=== PATIENT | male | born 1930 | race Caucasian/White ===

== ENCOUNTER 2021-01-15 13:56 | Emergency (ER) | payer MEDICARE, OTHER ==
--- NOTE | 2021-01-15 15:07 | ERPHSYRPT ---
- History of Present Illness Source: patient Exam Limitations: other (Poor historian) Patient Subjective Stated Complaint: PT HERE FOR LOWER BACK/TAILBONE PAIN. STATES HE IS HAVING TROUBLE URINATING . NO INJURY Triage Nursing Assessment: PT ALERT, RESP EASY, SKIN W/D/P, FACE MASK IN PLACE, ABD SOFT Physician History: 89 yo wm w inferior lumbar pain x 1 wk. Pain is 5/10 at rest but goes up to 9/10 w movement. Pt denies trauma/dysuria/hematuria/fever/incontinence of stool- urine. He saw an orthopedic surgeon last wk for the same problem. Pain is sharp wo radiation. Timing/Duration: other (1wk) Method of Injury: unknown Quality: sharp Back Pain Location: lumbar spine Severity of Pain-Max: severe Severity of Pain-Current: moderate Modifying Factors: Improves With: movement Associated Symptoms: lower back pain, No fever, No chills, No sweating, No urinary incontinence, No loss of bowel control, No constipation, No nausea, No vomiting, No problems urinating, No light-headedness, No dizziness, No numbness in legs/feet, No weakness, No sensory/motor loss, No tingling in legs/feet, No muscle spasms Previous symptoms: no prior history Allergies/Adverse Reactions: codeine Allergy (Verified 01/15/21 14:33) Home Medications: Apixaban [Eliquis] 1 ea BID 01/15/21 [History] Pregabalin 25 mg [Lyrica 25 MG] 25 mg PO BID 01/15/21 [History] Terazosin HCl 1 mg [Hytrin 1 mg] 1 mg DAILY 01/15/21 [History] Tramadol HCl 50 mg [Ultram 50 mg] 50 mg PO TID 01/15/21 [History] Ubidecarenone [Co Q-10] 1 ea DAILY 01/15/21 [History] Hx Influenza Vaccination/Date Given: Yes Hx Pneumococcal Vaccination/Date Given: Yes Immunizations Up to Date: Yes Travel Risk - International Travel Have you traveled outside of the country in past 3 weeks: No - Coronavirus Screening Are you exhibiting any of the following symptoms?: No Close contact with a COVID-19 positive Pt in past 14-21 Days: No - Vaccine Status Have you recieved a Covid-19 vaccination: Yes 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 - Review of Systems Constitutional: No Symptoms Eyes: No Symptoms Ears, Nose, & Throat: No Symptoms Respiratory: No Symptoms Cardiac: No Symptoms Abdominal/Gastrointestinal: No Symptoms, Appetite Changes Musculoskeletal: No Symptoms, Back Pain Skin: No Symptoms Neurological: No Symptoms Psychological: No Symptoms Endocrine: No Symptoms Hematologic/Lymphatic: No Symptoms Immunological/Allergic: No Symptoms - Past Medical History Pertinent Past Medical History: Yes Cardiac History: Coronary Artery Disease, Hypertension Endocrine Medical History: Diabetes Type II - Past Surgical History Past Surgical History: Yes Cardiac: CABG, Cardiac Catheterization - Social History Smoking Status: Never smoker Exposure to second hand smoke: No Drug Use: none Patient Lives Alone: Yes Significant Family History: no pertinent family hx - Nursing Vital Signs Nursing Vital Signs: Initial Vital Signs Pulse Rate 51 L 01/15/21 16:11 Blood Pressure 162/80 01/15/21 16:11 O2 Sat by Pulse Oximetry 97 01/15/21 16:11 Pain Scale Pain Intensity 5 Hypertensive - Physical Exam General Appearance: no apparent distress Eye Exam: PERRL/EOMI, eyes nml inspection Ears, Nose, Throat Exam: normal ENT inspection, TMs normal, pharynx normal, moist mucous membranes Neck Exam: normal inspection, non-tender, supple, full range of motion, No meningismus, No mass, No Brudzinski, No Kernig's Respiratory Exam: normal breath sounds, lungs clear, airway intact, No respiratory distress Cardiovascular Exam: regular rate/rhythm, normal heart sounds, normal peripheral pulses, murmur (2/6 EVON) Gastrointestinal Exam: soft, normal bowel sounds, No tenderness, No distention Back Exam: normal inspection, vertebral tenderness (Mod TTP mid-inferior L- spine) Extremity Exam: normal inspection, normal range of motion, pelvis stable Peripheral Pulses: carotid (R): 2+, carotid (L): 2+ Neurologic Exam: alert, oriented x 3, cooperative, 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 as tested, normal mood/affect, nml cerebellar function, sensation nml Skin Exam: normal color, warm, dry, No rash Lymphatic Exam: No adenopathy SpO2 Interpretation: normal SpO2: 97 O2 Delivery: Room Air - Course Nursing assessment & vital signs reviewed: Yes - CT Exams Abdomen/Pelvis CT Interpretation: Discussed w/radiologist (L sacral ala fx/Disrtended bladder/tiny gallstones/fecal stasis) Ordered Tests: Active Orders 24 hr Category Date Time Status ABDOMEN AND PELVIS W/0 CONTRAS [CT] Stat Exams 01/15/21 15:01 Completed CULTURE,URINE Stat Lab 01/15/21 17:53 Received UA W/RFX UR CULTURE Stat Lab 01/15/21 17:53 Completed Medication Summary Discontinued Medications Generic Name Dose Route Start Last Admin Trade Name Juan Luis PRN Reason Stop Dose Admin Ketorolac Tromethamine 15 mg 01/15/21 18:40 01/15/21 18:47 Toradol 30 Mg Injection IM 01/15/21 18:41 15 mg STAT ONE Administration Ketorolac Tromethamine Confirm 01/15/21 18:44 Toradol 30 Mg Injection Administered 01/15/21 18:45 Dose 30 mg .ROUTE .STK-MED ONE Lab/Rad Data: Laboratory Results 01/15/21 Range/Units 17:53 Urine Color STRAW (YELLOW) Urine Appearance CLEAR (CLEAR) Urine pH 6.0 (5-6) Ur Specific [place] 1.010 (1.005-1.025) Urine Protein 30 (Negative) Urine Ketones NEGATIVE (NEGATIVE) Urine Blood MODERATE (0-5) Arnold/ul Urine Nitrite NEGATIVE (NEGATIVE) Urine Bilirubin NEGATIVE (NEGATIVE) Urine Urobilinogen NEGATIVE (0-1) mg/dL Ur Leukocyte Esterase NEGATIVE (NEGATIVE) Urine WBC (Auto) 3-5 (0-5) /HPF Urine RBC (Auto) 11-15 (0-2) /HPF Urine Bacteria (Auto) RARE (NEGATIVE) /HPF Urine Culture Reflexed YES (NO) Urine Glucose NEGATIVE (NEGATIVE) mg/dL - Progress Progress: improved Progress Note: 01/15/21 18:41 IN/Out cath done per nursing/800ml drained 15mg IM Toradol Counseled pt/family regarding: diagnosis, need for follow-up, rad results - Departure Departure Disposition: Home Clinical Impression: Sacral fracture, closed, Urinary retention Condition: Stable Critical Care Time: No Referrals: KENNA KERR, [Primary Care Provider] - Instructions: Low Back Pain (DC) Additional Instructions: Rest/Heat/Massage Follow up with your family MD Pain meds as needed Weight bearing as tolerated Start Flomax for urinary retention Prescriptions: Hydrocodone/Acetaminophen [Hydrocodone-Acetamin 5-325 mg] 1 each PO Q6HPRN PRN #7 tablet MDD 4 tabs PRN Reason: Moderate To Severe Pain Hydrocodone/Acetaminophen [Hydrocodone-Acetamin 5-325 mg] [address] N #7 tablet MDD 4 tabs PRN Reason: Moderate To Severe Pain Tamsulosin HCl 0.4 mg [Flomax 0.4 MG] 0.4 mg PO DAILY #14 cap Tramadol HCl/Acetaminophen [Ultracet Tablet] 1 each PO Q4-6HPRN PRN #10 tablet MDD 4 tabs PRN Reason: Pain
--- NOTE | 2021-01-15 15:37 | XRAY ---
Indication: Low back pain 1 month. No known injury. Multiple contiguous axial images obtained through the abdomen and pelvis without contrast. Comparison: None Lung bases hyperinflated with minimal dependent atelectasis and tiny right lower lobe calcified granuloma. Heart is borderline enlarged. Small hiatal hernia. Noncontrasted stomach and bowel loops appear nonobstructed. Normal appendix. Mild diffuse scattered colonic fecal debris and colonic diverticulosis throughout. No free fluid/air. Markedly distended urinary bladder concerning for outlet obstruction versus neurogenic bladder. Enlarged prostate gland does impress on the base of the bladder. A few tiny gallstones/gravel. Remaining liver, gallbladder, pancreas, spleen, adrenal glands, kidneys, ureters, and bladder are unremarkable for noncontrast exam. Moderate scattered vascular calcifications. No AAA. Osseous structures intact with osteopenia and mild/moderate multilevel thoracolumbar degenerative spondylosis. Left sacral ala fracture of uncertain chronicity. Impression: 1. Left sacral ala fracture of uncertain chronicity. Elsewhere osteopenia and multilevel degenerative spondylosis. 2. Markedly distended urinary bladder. Rule out outlet objection versus neurogenic bladder. 3. Small hiatal hernia, tiny gallstones/gravel, mild diffuse fecal stasis, diffuse colonic diverticulosis, enlarged prostate gland, and moderate scattered arteriosclerotic arteriosclerotic disease.
[2021-01-15 18:25] LABS: Appearance CLEAR (CLEAR); Bilirubin NEGATIVE (NEGATIVE); Blood MODERATE Ery/ul (0-5); Glucose NEGATIVE (NEGATIVE); Ketones NEGATIVE (NEGATIVE); Leukocyte Esterase NEGATIVE (NEGATIVE); Nitrite NEGATIVE (NEGATIVE); Protein,Urine Dip 30 (Negative); Urobilinogen NEGATIVE mg/dL (0-1)
[2021-01-15 18:31] LABS: Bacteria RARE /HPF (NEGATIVE)
[2021-01-15] MEDS ORDERED: TORAdol 30 mg Injection IM ONE (18:40)
[2021-01-15] MEDS ORDERED: TORAdol 30 mg Injection ONE (18:44)
[2021-01-15 19:06] VITALS: BP 142/68; PULSE 60
[2021-01-15 20:55] VITALS: O2SAT 97
== END 2021-01-15 19:15 | disposition home or self-care (01) ==
LOC: ED 13:56
DX: S32.10XA Unspecified fracture of sacrum, initial encounter for closed fracture (principal); R33.9 Retention of urine, unspecified; M54.5 Low back pain; Z79.899 Other long term (current) drug therapy; Z79.01 Long term (current) use of anticoagulants; I25.10 Atherosclerotic heart disease of native coronary artery without angina pectoris; I10 Essential (primary) hypertension; Z95.1 Presence of aortocoronary bypass graft
CPT/HCPCS: 74176; 81001; 87086; 96372; 99284; J1885

== ENCOUNTER 2021-07-18 13:25 | Emergency (ER) | payer MEDICARE, OTHER ==
[2021-07-18 14:38] LABS: Appearance CLEAR (CLEAR); Bacteria FEW /HPF (NEGATIVE); Bilirubin NEGATIVE (NEGATIVE); Blood MODERATE Ery/ul (0-5); Glucose NEGATIVE (NEGATIVE); Ketones NEGATIVE (NEGATIVE); Leukocyte Esterase SMALL (NEGATIVE); Nitrite NEGATIVE (NEGATIVE); Protein,Urine Dip 100 (Negative); Specific Gravity 1.009 (1.005-1.025); Urobilinogen NEGATIVE mg/dL (0-1); WBC 26-50 /HPF (0-5)
--- NOTE | 2021-07-18 14:53 | ERPHSYRPT ---
- History of Present Illness Time Seen by Provider: 07/18/21 13:50 Source: patient Exam Limitations: no limitations Patient Subjective Stated Complaint: PT STATES, "HE CANNOT URINATE." Triage Nursing Assessment: PT ARRIVED TO ROOM VIA WHEELCHAIR, PT IS ALERT AND ORIENTED X 3, PT IS RECIEVING DIALYSIS 3 TIMES A WEEK, HAD CHUN CATHETER PLACED PER [facility] ON 07/09/21, THEN SAW UROLOGIST RISK TECH RADHA CAMACHO YESTERDAY AND CHUN NATIVIDAD'Vivien AT 1500, PT HAS NOT BEEN ABLE TO URINATE SINCE, PT DENEIS ANY PAIN OR URGE TO URINATE, PT DOES HAVE DIAYLSIS CATHETER IN RIGHT UPPER CHEST AND ALSO PERITONEAL CATH, HAS NOT STARTED PARITONEAL DIALYSIS. LAST DIALYSIS WAS TODAY 07/18/21 Physician History: Patient is a 89-year-old male presents to our ED as a referral from his urologist for evaluation and treatment of urinary retention. Patient is on hemodialysis for end-stage renal disease. 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 This condition causes patient's renal failure according to patient. 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 Patient states that he experienced urinary retention on July 09. Patient went to [facility] and a Chun catheter was inserted. Patient saw his urologist yesterday who pulled the Chun catheter. Patient states that he had not urinated over the last several hours and became concerned for recurrent urinary retention. Patient denied pain. Chun catheter reinserted in our ED. 600 cc of clear urine expressed. UA pending. Patient denied any discomfort. Son at bedside. They voiced no other complaints or concerns at this time. Timing/Duration: today Severity: mild Modifying Factors: Improves With: nothing Associated Symptoms: denies symptoms Allergies/Adverse Reactions: codeine Allergy (Verified 07/18/21 13:53) Home Medications: Apixaban [Eliquis] 5 mg PO BID 01/15/21 [History] Pregabalin 25 mg [Lyrica 25 MG] 50 mg PO DAILY 01/15/21 [History] Terazosin HCl 1 mg [Hytrin 1 mg] 1 mg PO HS 01/15/21 [History] Ubidecarenone [Co Q-10] 10 mg PO DAILY 01/15/21 [History] Atorvastatin Calcium [Lipitor 40Mg] 40 mg PO DAILY 07/18/21 [History] Cyanocobalamin 100 Mcg [Vitamin B-12 100 Mcg] 500 mcg PO HS 07/18/21 [History] Cyanocobalamin 500 Mcg [Vitamin B-12 500 MCG] 500 mcg PO DAILY 07/18/21 [History] Dexamethasone 4 mg [Decadron 4 MG] 20 mg PO WEEKLY 07/18/21 [History] Levothyroxine Sodium 75 Mcg [Synthroid 75 Mcg] 75 mcg PO DAILY 07/18/21 [History] Midodrine HCl 5 mg [Proamatine 5 mg] 5 mg PO TID 07/18/21 [History] Omeprazole 20 mg PO DAILY 07/18/21 [History] Tramadol HCl/Acetaminophen [Ultracet Tablet] 50 mg PO Q6HPRN PRN MDD 4 tabs 07/18/21 [History] calcitrioL [Calcitriol] 0.25 mcg PO DAILY 07/18/21 [History] Hx Tetanus, Diphtheria Vaccination/Date Given: Yes Hx Influenza Vaccination/Date Given: Yes Hx Pneumococcal Vaccination/Date Given: Yes Immunizations Up to Date: Yes Travel Risk - International Travel Have you traveled outside of the country in past 3 weeks: No - Coronavirus Screening Are you exhibiting any of the following symptoms?: No Close contact with a COVID-19 positive Pt in past 14-21 Days: No - Vaccine Status Have you recieved a Covid-19 vaccination: Yes 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[employer] - Vaccination Dates Date of 2cond Vaccination (if applicable): 07/03/2020 - Review of Systems Constitutional: No Symptoms, No Fever, No Chills Eyes: No Symptoms Ears, Nose, & Throat: No Symptoms Respiratory: No Symptoms, No Cough, No Dyspnea Cardiac: No Symptoms, No Chest Pain, No Edema, No Syncope Abdominal/Gastrointestinal: No Symptoms, No Abdominal Pain, No Nausea, No Vomiting, No Diarrhea Genitourinary Symptoms: No Symptoms, No Dysuria Musculoskeletal: No Symptoms, No Back Pain, No Neck Pain Skin: No Symptoms, No Rash Neurological: No Symptoms, No Dizziness, No Focal Weakness, No Sensory Changes Psychological: No Symptoms Endocrine: No Symptoms Hematologic/Lymphatic: No Symptoms Immunological/Allergic: No Symptoms All Other Systems: Reviewed and Negative - Past Medical History Pertinent Past Medical History: Yes Neurological History: No Pertinent History ENT History: No Pertinent History Cardiac History: Coronary Artery Disease, Hypertension Respiratory History: No Pertinent History Endocrine Medical History: Diabetes Type II Musculoskeletal History: Other GI Medical History: No Pertinent History History: Dialysis, Renal Disease Psycho-Social History: No Pertinent History Male Reproductive Disorders: No Pertinent History Other Medical History: MYLOMA - Past Surgical History Past Surgical History: Yes Neuro Surgical History: No Pertinent History Cardiac: CABG, Cardiac Catheterization Respiratory: No Pertinent History Gastrointestinal: No Pertinent History Genitourinary: No Pertinent History Musculoskeletal: No Pertinent History Male Surgical History: No Pertinent History Other Surgical History: DIALYSIS CATHETERS - Social History Smoking Status: Never smoker Exposure to second hand smoke: No Drug Use: none Patient Lives Alone: Yes Significant Family History: no pertinent family hx - Nursing Vital Signs Nursing Vital Signs: Initial Vital Signs Temperature 98.3 F 07/18/21 13:43 Pulse Rate 87 07/18/21 13:43 Respiratory Rate 20 07/18/21 13:43 Blood Pressure 99/59 07/18/21 13:43 O2 Sat by Pulse Oximetry 93 L 07/18/21 13:43 Pain Scale Pain Intensity 0 - Physical Exam General Appearance: no apparent distress, alert Eye Exam: PERRL/EOMI, eyes nml inspection Ears, Nose, Throat Exam: normal ENT inspection, TMs normal, pharynx normal, moist mucous membranes Neck Exam: normal inspection, non-tender, supple, full range of motion Respiratory Exam: normal breath sounds, lungs clear, airway intact, No respiratory distress Cardiovascular Exam: regular rate/rhythm, normal heart sounds, normal peripheral pulses Gastrointestinal/Abdomen Exam: soft, normal bowel sounds, No tenderness, No mass Back Exam: normal inspection, normal range of motion, No CVA tenderness, No vertebral tenderness Extremity Exam: normal inspection, normal range of motion, pelvis stable Neurologic Exam: alert, oriented x 3, cooperative, normal mood/affect, sensation nml, other (Patient presents to our ED in a wheelchair.), No motor deficits Skin Exam: normal color, warm, dry, No rash Lymphatic Exam: No adenopathy SpO2 Interpretation: normal SpO2: 88 O2 Delivery: Room Air - Course Nursing assessment & vital signs reviewed: Yes Ordered Tests: Active Orders 24 hr Category Date Time Status Chun [Catheter-[place] Chun] STAT Care 07/18/21 14:21 Completed Oxygen-ED Only Nasal Cannula 2 lpm Care 07/18/21 14:10 Completed CULTURE,URINE Stat Lab 07/18/21 14:34 Received UA W/RFX UR CULTURE Stat Lab 07/18/21 14:34 Completed Medication Summary Discontinued Medications Generic Name Dose Route Start Last Admin Trade Name Juan Luis PRN Reason Stop Dose Admin Ciprofloxacin 500 mg 07/18/21 14:54 07/18/21 15:22 Ciprofloxacin 500 Mg Tablet PO 07/18/21 14:55 500 mg ONCE STA Administration Ciprofloxacin Confirm 07/18/21 15:21 Ciprofloxacin 500 Mg Tablet Administered 07/18/21 15:22 Dose 500 mg .ROUTE .[place]af[place] ONE Lab/Rad Data: Laboratory Results 07/18/21 Range/Units 14:34 Urine Color YELLOW (YELLOW) Urine Appearance CLEAR (CLEAR) Urine pH 7.0 (5-6) Ur Specific [place] 1.009 (1.005-1.025) Urine Protein 100 (Negative) Urine Ketones NEGATIVE (NEGATIVE) Urine Blood MODERATE (0-5) Arnold/ul Urine Nitrite NEGATIVE (NEGATIVE) Urine Bilirubin NEGATIVE (NEGATIVE) Urine Urobilinogen NEGATIVE (0-1) mg/dL Ur Leukocyte Esterase SMALL (NEGATIVE) Urine WBC (Auto) 26-50 (0-5) /HPF Urine RBC (Auto) 16-25 (0-2) /HPF U Epithel Cells (Auto) NONE (FEW) /HPF Urine Bacteria (Auto) FEW (NEGATIVE) /HPF Urine Culture Reflexed ORDERED SEPARATELY (NO) Urine Glucose NEGATIVE (NEGATIVE) mg/dL - Progress Progress: improved Progress Note: Patient appears to have urinary retention. Patient states that urinary retention occurred after a peritoneal dialysis catheter was implanted. However patient also states that his urinary retention may be due to an enlarged prostate. Patient currently has a follow-up appointment with his urologist in 2 weeks. Urinalysis indicates a urinary tract infection. Patient asymptomatic. Patient states is ready for discharge. We will maintain the Chun catheter at this time. No indication for antibiotics. Patient and son voiced no other complaints or concerns at this time. Will discharge home. Portions of this note were created with voice recognition technology. There may be grammatical, spelling, punctuation or sound alike errors 07/18/21 14:51 07/18/21 14:53 Dr. Franco office approve 1 week of ciprofloxacin. 07/18/21 15:55 Counseled pt/family regarding: lab results, diagnosis, need for follow-up - Departure Departure Disposition: Home Clinical Impression: Urinary retention, Urinary tract infection Condition: Stable Critical Care Time: No Referrals: KENNA KERR DO [Primary Care Provider] - Follow up/PCP as directed Instructions: Urinary Tract Infection, Adult (DC), Urinary Retention (DC) Additional Instructions: Discharge/Care Plan KIMBERLY ROBBINS was seen on 07/18/21 in the Emergency Room. The patient was counseled regarding Diagnosis,Lab results, Imaging studies, need for follow up and when to return to the Emergency Room. Prescriptions given: Discharge Note I have spoken with the patient and/or caregivers. I have explained the patient's condition, diagnosis and treatment plan based on the information available to me at this time. I have answered the patient's and/or caregiver's questions and addressed any concerns. The patient and/or caregivers have as good understanding of the patient's diagnosis, condition and treatment plan as can be expected at this point. The vital signs have been stable. The patient's condition is stable and appropriate for discharge from the emergency department. The patient will pursue further outpatient evaluation with the primary care physician or other designated or consulting physician as outlined in the discharge instructions. The patient and/or caregivers are agreeable to this plan of care and follow-up instructions have been explained in detail. The patient and/or caregivers have received these instruction. The patient/and or caregivers are aware that any significant change in condition or worsening of symptoms should prompt an immediate return to this or the closest emergency department or call 911. KEEP YOUR SCHEDULED APPT WITH UROLOGY IN 2 WEEKS. Prescriptions: Ciprofloxacin [Cipro 500 MG] 500 mg PO BID 14 Days #28 tablet
[2021-07-18] MEDS ORDERED: Cipro 500 MG PO STA (14:54)
[2021-07-18] MEDS ORDERED: Cipro 500 MG ONE (15:21)
[2021-07-18 15:52] VITALS: BP 100/60; PULSE 68
[2021-07-18 15:56] VITALS: O2SAT 88
== END 2021-07-18 15:45 | disposition home or self-care (01) ==
LOC: ED 13:25
DX: R33.9 Retention of urine, unspecified (principal); N39.0 Urinary tract infection, site not specified; E11.22 Type 2 diabetes mellitus with diabetic chronic kidney disease; I12.0 Hypertensive chronic kidney disease with stage 5 chronic kidney disease or end stage renal disease; N18.6 End stage renal disease; Z99.2 Dependence on renal dialysis; Z79.01 Long term (current) use of anticoagulants; Z79.891 Long term (current) use of opiate analgesic; Z79.899 Other long term (current) drug therapy
CPT/HCPCS: 51702; 81001; 87077; 87086; 87186; 99284; A9270-GY